=== PATIENT | female | born 1965 | race Hispanic/Latino ===

== ENCOUNTER 2017-02-13 10:27 | Outpatient (CLI) | payer BC ==
--- NOTE | 2017-02-13 15:06 | Ultrasound Report ---
ULTRASOUND PELVIC COMPLETE ULTRASOUND TRANSVAGINAL HISTORY: Postmenopausal bleeding. TECHNIQUE: Transabdominal and transvaginal ultrasound with color and spectral doppler interrogation. The uterus is anteverted. The uterus measures 7.5 x 2.6 x 2.6 cm. No uterine fibroids are identified. There are multiple nabothian cysts in the cervix. The endometrial stripe measures 3 mm. No endometrial fluid collection or complex mass. The ovaries are not visualized. No adnexal mass or large cyst. No pelvic fluid collection. IMPRESSION: Unremarkable exam. Endometrial atrophy could be considered. Nabothian cysts in the cervix. The ovaries are not visualized.
== END 2017-02-13 10:28 | disposition home or self-care (01) ==
LOC: US 10:27
PROVIDERS: ATTEND Internal Medicine
DX: N88.8 Other specified noninflammatory disorders of cervix uteri (principal)
CPT/HCPCS: 76830; 76856

== ENCOUNTER 2017-03-20 10:57 | Outpatient (CLI) | payer BC ==
--- NOTE | 2017-03-20 12:22 | Mammography Report ---
BILATERAL MAMMOGRAM: FINDINGS: There are scattered fibroglandular densities (approximately 25%-50% glandular). No mass, distortion, suspicious calcification, or skin change is seen. CAD was utilized. IMPRESSION: Negative mammogram. There is no mammographic evidence of malignancy. RECOMMENDATION: Follow-up per ACS guidelines. BI-RADS CATEGORY: 1 = Negative ACR BI-RADS MAMMOGRAPHIC CODES: 0 = Needs additional imaging evaluation; 1 = Negative; 2 = Benign; 3 = Probably benign; 4 = Suspicious; 5 = Malignant; 6 = Known biopsy-proven malignancy COMMENT: 1. Dense breast tissue, i.e., adenosis, fibrocystic changes, etc., may obscure an underlying neoplasm. 2. Approximately 10% of cancers are not detected with mammography. 3. A negative mammography report should not delay biopsy if a clinically suspicious mass is present. COMMENT: Patient follow-up letters are generated in [employer].
--- NOTE | 2017-03-21 08:59 | Mammography Report ---
BILATERAL MAMMOGRAM: FINDINGS: There are scattered fibroglandular densities (approximately 25%-50% glandular). No mass, distortion, suspicious calcification, or skin change is seen. CAD was utilized. IMPRESSION: Negative mammogram. There is no mammographic evidence of malignancy. RECOMMENDATION: Follow-up per ACS guidelines. BI-RADS CATEGORY: 1 = Negative ACR BI-RADS MAMMOGRAPHIC CODES: 0 = Needs additional imaging evaluation; 1 = Negative; 2 = Benign; 3 = Probably benign; 4 = Suspicious; 5 = Malignant; 6 = Known biopsy-proven malignancy COMMENT: 1. Dense breast tissue, i.e., adenosis, fibrocystic changes, etc., may obscure an underlying neoplasm. 2. Approximately 10% of cancers are not detected with mammography. 3. A negative mammography report should not delay biopsy if a clinically suspicious mass is present. COMMENT: Patient follow-up letters are generated in [employer]. Addendum #1 Addendum: The above exam was performed as a total mammogram with 2-D imaging. Tomomammography of the right breast is unremarkable as is t BI-RADS CATEGORY: 0 = Needs additional imaging evaluation Impression: Questionable left nodule. Recommendation: Left breast ultrasound. BI-RADS CATEGORY: 0 = Needs additional imaging evaluation ACR BI-RADS MAMMOGRAPHIC CODES: 0 = Needs additional imaging evaluation; 1 = Negative; 2 = Benign; 3 = Probably benign; 4 = Suspicious; 5 = Malignant; 6 = Known biopsy-proven malignancy COMMENT: 1. Dense breast tissue, i.e., adenosis, fibrocystic changes, etc., may obscure an underlying neoplasm. 2. Approximately 10% of cancers are not detected with mammography. 3. A negative mammography report should not delay biopsy if a clinically suspicious mass is present. Addendum #2 Addendum: The above exam was performed with tomomammography and 2-D images. The right mammotomogram showed no additional information. The left tomogram however demonstrated a partially circumscribed appearing nodular density in the superior and medial aspects of the left breast. No additional information obtained. The finding appears relatively similar on both projections it is unclear as to whether it correspond exactly in position. It is not identified on the 2-D images. Impression: Suspicion of left breast nodule. Recommendation: Left breast ultrasound. BI-RADS CATEGORY: 0 = Needs additional imaging evaluation ACR BI-RADS MAMMOGRAPHIC CODES: 0 = Needs additional imaging evaluation; 1 = Negative; 2 = Benign; 3 = Probably benign; 4 = Suspicious; 5 = Malignant; 6 = Known biopsy-proven malignancy COMMENT: 1. Dense breast tissue, i.e., adenosis, fibrocystic changes, etc., may obscure an underlying neoplasm. 2. Approximately 10% of cancers are not detected with mammography. 3. A negative mammography report should not delay biopsy if a clinically suspicious mass is present.
== END 2017-03-20 10:58 | disposition home or self-care (01) ==
LOC: MAMMO 10:57
PROVIDERS: ATTEND Internal Medicine
DX: Z12.31 Encounter for screening mammogram for malignant neoplasm of breast (principal)
CPT/HCPCS: 77063; G0202; 77067

== ENCOUNTER 2017-05-02 10:32 | Outpatient (CLI) | payer BC ==
--- NOTE | 2017-05-03 11:24 | Ultrasound Report ---
Left breast ultrasound: Imaging of the medial breast is performed based on mammogram dated March 20, 2017. In the 10:00 location 5 cm from the nipple there is a circumscribed, elongated 9.1 mm homogeneously hyperdense nodule. No other findings. Impression: The ultrasound findings correspond in location and size with the mammographic finding however the mammographic finding is not fat whereas the ultrasound finding may represent fat. In any case there are no suspicious characteristics of either mammographic or ultrasound findings. Recommendation: Repeat tomomammogram and ultrasound in 6 months to confirm stability of both findings. BI-RADS CATEGORY: 3 = Probably benign ACR BI-RADS MAMMOGRAPHIC CODES: 0 = Needs additional imaging evaluation; 1 = Negative; 2 = Benign; 3 = Probably benign; 4 = Suspicious; 5 = Malignant; 6 = Known biopsy-proven malignancy COMMENT: 1. Dense breast tissue, i.e., adenosis, fibrocystic changes, etc., may obscure an underlying neoplasm. 2. Approximately 10% of cancers are not detected with mammography. 3. A negative mammography report should not delay biopsy if a clinically suspicious mass is present.
== END 2017-05-02 10:33 | disposition home or self-care (01) ==
LOC: US 10:32
PROVIDERS: ATTEND Internal Medicine
DX: R92.8 Other abnormal and inconclusive findings on diagnostic imaging of breast (principal)

== ENCOUNTER 2017-05-24 11:15 | Outpatient (CLI) | payer BC ==
--- NOTE | 2017-05-24 17:03 | Cat Scan Report ---
FINAL REPORT PROCEDURE: CT ABDOMEN PELVIS WO CON TECHNIQUE: Computerized axial tomography of the abdomen and pelvis was performed without intravenous contrast. This study is performed without intravascular contrast material and its sensitivity for abdominal and pelvic pathology, including neoplasms, inflammation, abscess, free fluid, thrombosis, arterial dissection and infarction, is reduced compared with a contrast enhanced study. Oral contrast was not administered limiting evaluation of the bowel as well. HISTORY: HEMATURIA COMPARISON: None FINDINGS: Visualized lower thorax: No significant abnormality. Liver: Diffuse fatty infiltration. Spleen: Unremarkable. Accessory splenule seen. Gallbladder and biliary system: Cholecystectomy. No evident biliary ductal obstruction. Pancreas: Normal. Adrenals: Normal. Kidneys: Few tiny 1-2 millimeter bilateral renal calculi without hydronephrosis. Lobulated density slightly hypodense to renal parenchyma arising from the posterior lower pole cortex of the left kidney. This measures 3.7 x 3 centimeters. GI tract: Mild sigmoid diverticulosis without evidence of diverticulitis. No bowel obstruction. Normal appendix.. Lymph nodes and mesentery: Normal. Vasculature: Normal. Bladder: Normal. Reproductive organs: Normal. Peritoneum: No free fluid. Musculoskeletal structures: Suspect partially peripherally ossified/calcified central disc protrusion at L5/S1. No stenosis.. Other: None. IMPRESSION: Indeterminate possibly benign complex cyst of the lower pole of the left kidney 3.7 x 3 centimeters. Pathologic lesion is not excluded. CT nephrogram would be of benefit as an adjunct to this exam. Tiny bilateral renal calculi without hydronephrosis. Diffuse fatty infiltration of the liver. Mild sigmoid diverticulosis. L5/S1 central disc protrusion without stenosis. Cholecystectomy.
== END 2017-05-24 11:16 | disposition home or self-care (01) ==
LOC: CT 11:15
PROVIDERS: ATTEND Urology
DX: N20.0 Calculus of kidney (principal); N28.1 Cyst of kidney, acquired; K76.0 Fatty (change of) liver, not elsewhere classified; K57.30 Diverticulosis of large intestine without perforation or abscess without bleeding; M51.27 Other intervertebral disc displacement, lumbosacral region; Z90.49 Acquired absence of other specified parts of digestive tract
CPT/HCPCS: 74176

== ENCOUNTER 2017-07-25 10:45 | Outpatient (CLI) | payer BC ==
--- NOTE | 2017-07-26 08:30 | Ultrasound Report ---
ULTRASOUND RENAL BILATERAL HISTORY: Disorders of kidney and ureter. TECHNIQUE: transabdominal ultrasound with color Doppler interrogation. FINDINGS: The right kidney measures 11.1 x 5.1 x 5.2cm. Right renal cortex: 1.3cm. The left kidney measures 11.6 x 5.3 x 5.7cm. Left renal cortex: 1.3cm. Scans of the kidneys show normal renal contours. There is normal central calyceal clustering and good preservation of the cortical thickness. There are a few punctate calyceal stones suspected in both kidneys. A 3.0 x 2.7 x 2.7 cm exophytic cyst is identified at the inferior pole of the left kidney. There is no evidence of mass or hydronephrosis. The views of the bladder and the region of the ureters appear normal. IMPRESSION: Punctate bilateral renal stones. No evidence for obstruction. Left renal cyst.
== END 2017-07-25 10:46 | disposition home or self-care (01) ==
LOC: US 10:45
PROVIDERS: ATTEND Urology
DX: N20.0 Calculus of kidney (principal); N28.1 Cyst of kidney, acquired; N28.89 Other specified disorders of kidney and ureter
CPT/HCPCS: 76770

== ENCOUNTER 2017-07-26 11:11 | Outpatient (CLI) | payer BC ==
[2017-07-26] MEDS ORDERED: NACL ONE (13:15)
--- NOTE | 2017-07-26 15:12 | Cat Scan Report ---
CT abdomen with contrast History: Left renal mass. Technique: Helical CT following IV contrast. Sagittal and coronal reformatted images. Comparison: Noncontrast CT dated 05/24/17. Findings: Both kidneys are normal size and position. The 3.7 x 3.0 cm exophytic lesion at the inferior pole of the left kidney is unchanged and consistent with a lobulated cyst. There is no evidence for soft tissue component, enhancement or calcifications. The kidneys are within normal limits otherwise. The visualized ureters are normal course and caliber. There is moderate diffuse fatty infiltration of the liver parenchyma. No focal mass or surface nodularity. The portal venous system and hepatic veins are patent. The gallbladder has been surgically removed. No biliary dilatation. The pancreas, spleen, adrenal glands, aorta and visualized bowel loops are unremarkable. Normal appendix. IMPRESSION: Left renal cyst as described, Bosniak class I or II.
== END 2017-07-26 11:12 | disposition home or self-care (01) ==
LOC: CT 11:11
PROVIDERS: ATTEND Urology
DX: N28.1 Cyst of kidney, acquired (principal); N28.89 Other specified disorders of kidney and ureter; K76.0 Fatty (change of) liver, not elsewhere classified; Z90.49 Acquired absence of other specified parts of digestive tract
CPT/HCPCS: 74160; Q9967

== ENCOUNTER 2017-08-15 08:53 | Day surgery (SDC) | payer BC ==
[2017-08-15] MEDS ORDERED: NACL 0.9% 1000 ML 1,000 ML IV SCH (10:00)
[2017-08-15] MEDS ORDERED: DIPRIVAN 10 MG/ML IV ONE ×2 (10:01)
--- NOTE | 2017-08-15 10:28 | Short Stay Summary ---
Short Stay Documentation Date of service: 08/15/17 Narrative H&P: The patient presents for her first screening colonoscopy. Father had polyps. - History Past Medical History: No medical history Past Surgical History: No surgical history Social history: no smoking, no alcohol abuse, no prescription drug abuse - Allergies and Medications Current Medications: Allergies codeine Adverse Reaction (Unverified 02/13/17 10:28) Itching Active Medications Sodium Chloride (Nacl 0.9% 1000 Ml) 1,000 mls @ 50 mls/hr IV DIRECT MARK - Physical exam General appearance: no acute distress, well-nourished Integumentary: no rash, no growths HEENT: Atraumatic, PERRLA, EOMI, Mucous membr. moist/pink Lungs: Clear to auscultation, Normal air movement Breasts: deferred Heart: Regular rate, Normal S1, Normal S2, no No murmurs Gastrointestinal: normoactive bowel sounds, no tenderness, no distended, no masses, no guarding, no organomegaly Female Genitourinary: deferred Rectal Exam: normal exam-external/orifice, normal rectal tone, no mass Extremities: no ischemia, pulses intact, pulses symmetrical, No edema, normal temperature, normal color, Full ROM Neurological: Normal gait, Normal speech, Strength at 5/5 X4 ext, Normal tone, Sensation intact, Cranial nerves 3-12 NL - Brief post op/procedure progress note Date of procedure: 08/15/17 Findings: see dictated report. Estimated blood loss: none Pathology: none Condition: stable - Disposition Condition at discharge: Good Disposition: DC-01 TO HOME OR SELFCARE - Discharge Diagnoses (1) Family history of colonic polyps Status: Acute Short Stay Discharge Plan Activity: other (no driving for 24 hours) Weight Bearing Status: Weight Bear as Tolerated Diet: regular Follow up with: ADITYA HAWTHORNE MD [Primary Care Provider] - 7 Days
--- NOTE | 2017-08-15 10:31 | Operative Report ---
Operative Report Operative Report: Date of procedure: 08/15/2017 Preprocedure diagnosis: Colon cancer screening. No prior studies. Family history of colon polyps. Post procedure diagnosis: Rare diverticula in the right colon and sigmoid colon Procedure: Colonoscopy to the cecum Endoscopist: Dr. Fontana Anesthesia: Monitored anesthesia care per anesthesia department Estimated blood loss: 0 Medications: Monitored anesthesia care. See separate report by anesthesia for details. After careful discussion of the nature and purpose of the procedure as well as details of the technique risks benefits and alternatives the patient gave consent. Please see recent history and physical from the office. The patient was placed in the left lateral decubitus position and medicated per anesthesia. A rectal exam was performed sphincter tone was normal there were no masses palpable. The [employer] 570 scope was passed transanally and advanced under continuous direct vision without difficulty to the cecum. The colon was well prepared. The cecum was normal. The ascending colon was normal and on forward and retroflexed views except for a few diverticula.. The transverse colon, descending colon, and sigmoid colon were normal as well except for a few sigmoid diverticula. The rectum was normal on forward and retroflexed views. The procedure was well-tolerated overall and the patient was observed in recovery. Conclusions: Few diverticula in the ascending and sigmoid colon, otherwise normal colonoscopy to the cecum. Plan: Repeat colonoscopy in 5 years in light of family history of colon polyps. Signed electronically: Bryn Fontana M.D.
--- NOTE | 2017-08-15 10:34 | Anesthesia Consultation ---
Anesthesia Consult and Med Hx Date of service: 08/15/17 - Airway Anesthetic Teeth Evaluation: Good ROM Head & Neck: Inadequate Mental/Hyoid Distance: Adequate Mallampati Class: Class I Intubation Access Assessment: Good - Pulmonary Exam CTA: Yes - Cardiac Exam Cardiac Exam: RRR - Pre-Operative Health Status ASA Pre-Surgery Classification: ASA2 Proposed Anesthetic Plan: MAC - Pre-Anesthesia Comment Pre-Anesthesia Comments: cervical stenosis, numbness right fingers - Central Nervous System Hx Psychiatric Problems: Yes (anxiety )
--- NOTE | 2017-08-15 10:34 | Anesthesia Day of Surgery ---
Anesthesia Day of Surgery - Day of Surgery Patient Examined: Yes Patient H&P Reviewed: Yes Patient is NPO: Yes
[2017-08-15 11:35] VITALS: BP 104/59
--- NOTE | 2017-08-15 14:43 | Post Anesthesia Evaluation ---
- Post Anesthesia Evaluation Patient Participated: Yes Airway Patent: Yes Stable Respiratory Function: Yes Nausea/Vomiting: No Temp > 96.8F: Yes Pain Manageable: Yes Adequeate Hydration: Yes Anesthesia Complications: No
== END 2017-08-15 08:54 | disposition home or self-care (01) ==
LOC: GIO 08:53
PROVIDERS: ATTEND Internal Medicine Gastroenterology
DX: Z12.11 Encounter for screening for malignant neoplasm of colon (principal); K57.30 Diverticulosis of large intestine without perforation or abscess without bleeding; F41.9 Anxiety disorder, unspecified; Z83.71 Family history of colonic polyps; Z88.5 Allergy status to narcotic agent
CPT/HCPCS: 45378; J2704; J7030

== ENCOUNTER 2017-09-08 09:41 | Outpatient (CLI) | payer BC ==
--- NOTE | 2017-09-08 13:34 | Ultrasound Report ---
LEFT DIGITAL DIAGNOSTIC MAMMOGRAM with CAD and DIGITAL BREAST TOMOSYNTHESIS (DBT) and LEFT BREAST ULTRASOUND: 09/08/17 09:41:00 CLINICAL: Followup of a hyperechoic nodule at 10 o'clock. COMPARISON:03/20/17 screening mammogram with digital breast tomosynthesis (DBT) and left breast ultrasound. FINDINGS: The breast is heterogeneously dense with a stable pattern. No mass, architectural distortion or suspicious calcifications. Ultrasound of the left breast demonstrated an oval relatively homogeneous smooth hyperechoic mass at 10 o'clock 5 cm from the nipple. It measures 7 x 3 x 7 mm and is questionably smaller since it measured 9.1 mm maximum on the last exam. No shadowing or posterior enhancement. No other mass, cyst or shadowing. IMPRESSION: Negative mammogram and a stable to slightly smaller hyperechoic mass at 10 o'clock 5 cm from the nipple identified only by ultrasound. BI-RADS CATEGORY: 3 -- Probably Benign RECOMMENDATION: Six month followup left mammogram and left breast ultrasound. COMMENT: Patient follow-up letters are generated by our [employer] application.
== END 2017-09-08 09:42 | disposition home or self-care (01) ==
LOC: MAMMO 09:41
PROVIDERS: ATTEND Internal Medicine
DX: N63.20 Unspecified lump in the left breast, unspecified quadrant (principal); Z83.71 Family history of colonic polyps
CPT/HCPCS: 76642; 77065; G0279

== ENCOUNTER 2017-11-16 12:15 | Outpatient (CLI) | payer BC | END 2017-11-16 12:16 | disposition home or self-care (01) | LOC: LAB 12:15 | PROVIDERS: ATTEND Internal Medicine | DX: Z78.0 Asymptomatic menopausal state (principal); Z88.6 Allergy status to analgesic agent | CPT/HCPCS: 36415; 82670; 83001; 84144; 84403 ==

== ENCOUNTER 2017-11-27 15:20 | Outpatient (CLI) | payer BC | END 2017-11-27 15:21 | disposition home or self-care (01) | LOC: LAB 15:20 | PROVIDERS: ATTEND Internal Medicine | DX: E03.9 Hypothyroidism, unspecified (principal); F41.9 Anxiety disorder, unspecified; Z88.6 Allergy status to analgesic agent | CPT/HCPCS: 36415; 84436; 84443; 84479 ==

== ENCOUNTER 2018-01-10 14:14 | Outpatient (CLI) | payer BC | END 2018-01-10 14:15 | disposition home or self-care (01) | LOC: LAB 14:14 | PROVIDERS: ATTEND Internal Medicine | DX: N39.0 Urinary tract infection, site not specified (principal) | CPT/HCPCS: 87076; 87086; 87186 ==

== ENCOUNTER 2018-09-26 11:58 | Outpatient (CLI) | payer BC ==
--- NOTE | 2018-09-26 12:55 | XRay Report ---
4 views of of the knee including tunnel view: Findings: No definite bony or acute abnormality. No fracture dislocation or soft tissue calcification. Suspicion of joint effusion. Impression: Suspicion for joint effusion.
== END 2018-09-26 11:59 | disposition home or self-care (01) ==
LOC: XRAY 11:58
PROVIDERS: ATTEND Orthopaedic Surgery
DX: M25.562 Pain in left knee (principal)

== ENCOUNTER 2018-09-27 12:55 | Outpatient (CLI) | payer BC | END 2018-09-27 12:56 | disposition home or self-care (01) | LOC: LAB 12:55 | DX: H10.409 Unspecified chronic conjunctivitis, unspecified eye (principal) | CPT/HCPCS: 87076; 87116; 87186 ==

== ENCOUNTER 2018-10-03 11:45 | Outpatient (CLI) | payer BC ==
--- NOTE | 2018-10-03 12:33 | XRay Report ---
THORACIC SPINE, 2 VIEWS: HISTORY: Upper back pain. Mild osteopenia is evident. No evidence for compression deformity, malalignment, or bone lesion. Minimal degenerative disc disease is noted in the upper and mid thoracic spine. The posterior ribs are intact. The paraspinal soft tissues are within normal limits. IMPRESSION: Osteopenia. Mild thoracic spondylosis. No acute injury is identified.
--- NOTE | 2018-10-03 12:34 | XRay Report ---
AP AND LATERAL CERVICAL SPINE: History: Neck pain. Mild osteopenia is evident. There is normal height and alignment of the cervical vertebral bodies. No evidence for fracture or bone lesion. Moderate disc narrowing with anterior and posterior spurring is identified at C5-6. The remaining levels are within normal limits. The facet joints are unremarkable. IMPRESSION: Osteopenia. Moderate degenerative disc disease at C5-6. No acute process is noted.
== END 2018-10-03 11:46 | disposition home or self-care (01) ==
LOC: XRAY 11:45
PROVIDERS: ATTEND Chiropractor
DX: M50.322 Other cervical disc degeneration at C5-C6 level (principal); M85.88 Other specified disorders of bone density and structure, other site; M48.02 Spinal stenosis, cervical region; M47.814 Spondylosis without myelopathy or radiculopathy, thoracic region
CPT/HCPCS: 72040; 72070

== ENCOUNTER 2018-11-13 13:44 | Outpatient (CLI) | payer BC ==
--- NOTE | 2018-11-13 18:11 | Magnetic Resonance Report ---
. MRI LEFT KNEE WITHOUT CONTRAST INDICATION: M25.562 PAIN IN LEFT KNEE. COMPARISON: None available. TECHNIQUE: Multiplanar, multisequence MR images were obtained. FINDINGS: ACL: No significant abnormality. PCL: No significant abnormality. MEDIAL MENISCUS: No significant abnormality. LATERAL MENISCUS: No significant abnormality. DISTAL QUADRICEPS TENDON: No significant abnormality. PATELLAR TENDON: No significant abnormality. MCL: No significant abnormality. LCL: No significant abnormality. DISTAL IT BAND: No significant abnormality. POSTEROLATERAL CORNER: No significant abnormality. PATELLOFEMORAL ALIGNMENT: No significant abnormality. ARTICULAR CARTILAGE: No significant chondrosis or articular cartilage defect. JOINT SPACE: No significant joint effusion or synovitis. No significant popliteal cyst. No intra-lizbeth cular bodies. BONES: No significant bone marrow edema. No fracture. No osseous lesion. SUBCUTANEOUS SOFT TISSUES: Moderate prepatellar subcutaneous edema. Loculated prepatellar fluid colle ction measuring 1.2 x 3.4 x 3.8 cm in AP by transverse by craniocaudal dimensions characteristic for prepatellar bursitis. ADDITIONAL FINDINGS: None. IMPRESSION: 1. Moderate prepatellar bursitis with surrounding subcutaneous edema/cellulitis. Signer Name: Philip Odom MD Signed: 11/13/2018 6:07 PM Workstation Name: [email or web address]
== END 2018-11-13 13:45 | disposition home or self-care (01) ==
LOC: MRI 13:44
PROVIDERS: ATTEND Orthopaedic Surgery
DX: M70.42 Prepatellar bursitis, left knee (principal); Y93.89 Activity, other specified
CPT/HCPCS: 73721

== ENCOUNTER 2018-12-21 13:37 | Outpatient (CLI) | payer BC ==
--- NOTE | 2018-12-21 15:57 | Mammography Report ---
DIGITAL SCREENING MAMMOGRAM WITH TOMOSYNTHESIS WITH CAD, 12/21/2018 INDICATION: Routine Screening Mammography. SCREENING WITH JARED TECHNIQUE: Digital bilateral 2D and 3D mammography with tomosynthesis was obtained in the craniocau hayley and mediolateral oblique projections. Computer-Aided Detection (CAD) analysis was used for inter pretation of this study. COMPARISON: 09/08/2017 left diagnostic mammogram with jared and bilateral screening mammogram with jared 03/20/2017 FINDINGS: Breast Density: The breasts are heterogeneously dense, which may obscure small masses. An irregular left outer asymmetry on images 24, 25, 26 and 27 of the CC jared series requires addition al imaging. No corresponding finding on the MLO, series. The right breast is negative. IMPRESSION: Left asymmetry in the outer breast identified on 2-D and 3-D CC images requires additiona l imaging. Recommend recall for left rolled CC and spot magnification CC views and left breast ultras ound if needed. Follow up recommendation: Special View: Mag Category 0: Incomplete. Needs additional imaging evaluation and/or prior mammograms for comparison. A "normal" or negative report should not discourage follow up or biopsy of a clinically significant f inding. A written summary of these findings will be mailed to the patient. The patient will be entered into a mammography reporting system which will generate a reminder letter for the patient's next appointmen t at the appropriate interval. The [employer] recommends yearly mammograms starting at age 40 and continuing as l taryn as a woman is in good health. Breast MRI is recommended for women with an approximate 20-25% or greater lifetime risk of breast cancer, including women with a strong family history of breast or ova fela cancer or who have been treated for Hodgkin's disease. Signer Name: Manolo Zepeda MD Signed: 12/21/2018 3:52 PM Workstation Name: [id number]
== END 2018-12-21 13:38 | disposition home or self-care (01) ==
LOC: SPVWC 13:37
PROVIDERS: ATTEND Internal Medicine
DX: Z12.31 Encounter for screening mammogram for malignant neoplasm of breast (principal)
CPT/HCPCS: 77063; 77067

== ENCOUNTER 2019-01-15 12:44 | Outpatient (CLI) | payer BC ==
--- NOTE | 2019-01-15 15:02 | Mammography Report ---
LEFT DIGITAL DIAGNOSTIC MAMMOGRAM WITH CAD -- 01/15/2019 LEFT LIMITED BREAST ULTRASOUND INDICATION: Recall to evaluate asymmetry on tomosynthesis. TECHNIQUE: Digital left mammographic imaging was performed. Magnification views were obtained. Later al and rolled cc views were also obtained. This examination was interpreted with the benefit of Compu ter-Aided Detection (CAD) analysis. COMPARISON: 12/21/2018 screening 2-D and 3-D FINDINGS: Breast Density: The breast is heterogeneously dense, which may obscure small masses. MAMMOGRAPHIC FINDINGS: Additional left mammographic views were performed and are negative. ULTRASOUND FINDINGS: Targeted ultrasound evaluation was performed of the area of interest. Ultrasou nd of the outer left breast was performed and demonstrated normal structures with no mass, cyst or sh adowing. IMPRESSION: Negative mammogram and negative targeted left breast ultrasound. Follow up recommendation: Routine yearly BI-RADS Category 1: Negative. A "normal" or negative report should not discourage follow up or biopsy of a clinically significant f inding. A written summary of these findings will be mailed to the patient. The patient will be entered into a mammography reporting system which will generate a reminder letter for the patient's next appointmen t at the appropriate interval. According to the [employer], yearly mammograms are recommended starting at age 40 and continuing as long as a woman is in good health. Breast MRI is recommended for women with an mariam roximately 20-25% or greater lifetime risk of breast cancer, including women with a strong family his tory of breast or ovarian cancer and women who have been treated for Hodgkin's disease. Signer Name: Manolo Zepeda MD Signed: 01/15/2019 2:57 PM Workstation Name: [id number]
== END 2019-01-15 12:45 | disposition home or self-care (01) ==
LOC: SPVWC 12:44
PROVIDERS: ATTEND Internal Medicine
DX: R92.8 Other abnormal and inconclusive findings on diagnostic imaging of breast (principal)

== ENCOUNTER 2019-03-13 09:04 | Outpatient (CLI) | payer BC ==
[2019-03-13 09:31] LABS: Basophils % (Auto) 0.5 % (0.0-1.8); Eosinophils # (Auto) 0.1 K/mm3 (0.0-0.4); Eosinophils % (Auto) 1.2 % (0.0-4.3); Hematocrit 46.8 % (30.3-42.9); Hemoglobin 15.7 gm/dl (10.1-14.3); Lymphocytes # (Auto) 1.8 K/mm3 (1.2-5.4); Lymphocytes % (Auto) 32.2 % (13.4-35.0); Mean Corpuscular HGB Conc 34 % (30-34); Mean Corpuscular Volume 96 fl (79-97); Monocytes # (Auto) 0.5 K/mm3 (0.0-0.8); Monocytes % (Auto) 8.8 % (0.0-7.3); Platelet Count 341 K/mm3 (140-440); Red Blood Count 4.87 M/mm3 (3.65-5.03); Red Cell Distribution Width 13.2 % (13.2-15.2)
[2019-03-13 09:46] LABS: Alanine Aminotransferase 17 units/L (7-56); Albumin 4.5 g/dL (3.9-5); BUN/Creatinine Ratio 23; Blood Urea Nitrogen 14 mg/dL (7-17); Calcium 10.2 mg/dL (8.4-10.2); Chol/HDL Ratio 2.08 %; HDL Cholesterol 104 mg/dL (40-59); Hemolysis Index 4; LDL Cholesterol,Direct 121 mg/dL (50-130)
[2019-03-13 09:53] LABS: Free T4 (Free Thyroxine) 1.1 ng/dL (0.76-1.46)
== END 2019-03-13 09:05 | disposition home or self-care (01) ==
LOC: LAB 09:04
PROVIDERS: ATTEND Internal Medicine
DX: Z00.00 Encounter for general adult medical examination without abnormal findings (principal)
CPT/HCPCS: 36415; 80053; 80061; 84439; 84443; 84481; 85025

== ENCOUNTER 2019-09-16 10:43 | Outpatient (CLI) | payer BC | END 2019-09-16 10:44 | disposition home or self-care (01) | LOC: LAB 10:43 | PROVIDERS: ATTEND Internal Medicine | DX: N95.1 Menopausal and female climacteric states (principal) | CPT/HCPCS: 36415; 82670; 83001; 84144 ==